=== PATIENT | male | born 1995 | race Caucasian/White ===

== ENCOUNTER 2020-02-08 21:37 | Emergency (ER) | payer OTHER ==
[~2020-02-08] VITALS: Ht 177.8 cm; Wt 70.3 kg
[2020-02-08 22:07] LABS: ABSOLUTE EOSINOPHILS 0.3 thou/uL (0.0-0.7); ABSOLUTE LYMPHOCYTES 2.7 thou/uL (0.8-5.3); ABSOLUTE MONOCYTES 0.8 thou/uL (0.0-1.2); ABSOLUTE NEUTROPHILS 6.4 thou/uL (1.6-8.1); BASOPHILS 0.3 %; EOSINOPHILS 3.1 %; HEMATOCRIT 41.3 % (42.0-52.0); HEMOGLOBIN 14.9 gm/dL (14.0-18.0); MCH 33.2 pg (26.0-34.0); MCHC 36.1 g/dL (28.0-37.0); MCV 91.9 fL (80.0-100.0); MONOCYTES 8.2 %; MPV 7.9 fl. (7.2-11.1); NUCLEATED RBCS 0 /100WBC; PLATELET COUNT* 223 thou/uL (150-400); POLYS 62.4 %; RDW-CV 12.5 % (10.5-14.5); WBC 10.3 thou/uL (4.0-11.0)
[2020-02-08 22:18] LABS: CREATININE 1.2 mg/dL (0.6-1.3); POTASSIUM 3.7 mmol/L (3.5-5.1)
[2020-02-08 22:27] LABS: ALBUMIN 4.3 g/dL (3.4-5.0); TOTAL BILIRUBIN 0.6 mg/dL (<0.1-1.0); TOTAL PROTEIN 7.4 g/dL (6.4-8.2)
[2020-02-08] MEDS ORDERED: BRIVIACT50 MG PO (22:39)
[2020-02-08 23:38] VITALS: BP 114/68
--- NOTE | 2020-02-09 10:38 | EKG ---
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
== END 2020-02-08 23:38 | disposition home or self-care (01) ==
LOC: M.ERS 21:37
PROVIDERS: Emergency Medicine
DX: R56.9 Unspecified convulsions (principal); Z88.8 Allergy status to other drugs, medicaments and biological substances

== ENCOUNTER 2020-08-12 09:47 | Emergency (ER) | payer OTHER ==
[~2020-08-12] VITALS: Ht 177.8 cm; Wt 70.3 kg
[~2020-08-12 09:47] MED LIST: BRIVIACT50 MG PO
[2020-08-12] MEDS ORDERED: HYDROCODON-ACE1 EAC7 PO (11:06)
[2020-08-12 11:45] VITALS: BP 134/95
== END 2020-08-12 11:45 | disposition home or self-care (01) ==
LOC: M.ERS 09:47
DX: S82.891A Other fracture of right lower leg, initial encounter for closed fracture (principal); W18.39XA Other fall on same level, initial encounter; Y93.67 Activity, basketball; Y92.89 Other specified places as the place of occurrence of the external cause; Y99.8 Other external cause status